=== PATIENT | male | born 1945 | race Caucasian/White ===

== ENCOUNTER 2018-01-13 16:14 | Emergency (ER) | payer OTHER, MEDICARE, BC ==
[~2018-01-13] VITALS: Ht 180.3 cm; Wt 113.5 kg
[~2018-01-13 16:14] MED LIST: ADVI200T PO; BENA20TA3; CYCL1PAK; GABA300C3 PO; PROC5TAB PO; ROXI5TAB4 PO
[2018-01-13 16:30] VITALS: BP 167/92; PULSE 110; RESP 18; TEMP 98.2; O2SAT 98
--- NOTE | 2018-01-13 16:40 | PD ---
HPI Chief Complaint: Cardiac Complaint Time Seen by Provider: 16:37 Travel History International Travel<30 days: No Contact w/Intl Traveler<30days: No Traveled to known affect area: No History of Present Illness HPI 72-year-old male presents via EMS for evaluation of atrial fibrillation. The patient went to the [place] today for routine physical and he was found to have atrial fibrillation with RVR. The patient does report that over the past few weeks he has been experiencing mild palpitations. He denies any chest pain, shortness of breath, nausea or vomiting, fevers or chills, abdominal pain, lower extremity edema. He reports that he has had some situational family stress over the past few weeks. Denies any drug, alcohol, tobacco use. He reports that he had one episode of atrial fibrillation approximately 1.5 years ago which resolved spontaneously. Since then he has been on a baby aspirin daily. Reports history of hypertension. He has no other complaints at this time. [facility] Social History Alcohol Use: No Tobacco Use: No Allergies-Medications (Allergen,Severity, Reaction): Coded Allergies: No Known Allergies (Unverified Adverse Reaction, Unknown, 01/13/18) Reported Meds & Prescriptions Reported Meds & Active Scripts Active Metoprolol Tartrate 25 Mg Tab 25 Mg PO DAILY Reported Motrin Ib (Ibuprofen) 200 Mg Tablet 200 Mg PO Q6HR PRN Tylenol (Acetaminophen) 325 Mg Tab 650 Mg PO Q4H PRN Acetaminophen Pm Caplet (Acetaminophen/Diphenhydramine) 500 Mg-25 Mg Tablet 1 Tab PO HS PRN Holden Chewable Low Dose (Aspirin) 81 Mg Chew 81 Mg PO DAILY Lotrel 5-40 mg Capsule (Amlodipine Besylate/Benazepril) 5 Mg-40 Mg Capsule 1 Cap PO DAILY Review of Systems Except as stated in HPI: all other systems reviewed are Neg Physical Exam Narrative GENERAL: Well-developed well-nourished male in no acute distress resting comfortably in hospital bed. SKIN: Warm and dry. HEAD: Atraumatic. Normocephalic. EYES: Pupils equal and round. No scleral icterus. No injection or drainage. ENT: No nasal bleeding or discharge. Mucous membranes pink and moist. NECK: Trachea midline. No JVD. CARDIOVASCULAR: Irregular rate and rhythm. No murmur appreciated. RESPIRATORY: No accessory muscle use. Clear to auscultation. Breath sounds equal bilaterally. GASTROINTESTINAL: Abdomen soft, non-tender, nondistended. Hepatic and splenic margins not palpable. MUSCULOSKELETAL: No obvious deformities. No clubbing. No cyanosis. No edema. NEUROLOGICAL: Awake and alert. No obvious cranial nerve deficits. Motor grossly within normal limits. Normal speech. PSYCHIATRIC: Appropriate mood and affect; insight and judgment normal. Data Data Last Documented VS Vital Signs Date Time Temp Pulse Resp B/P (MAP) Pulse Ox O2 Delivery O2 Flow Rate FiO2 01/13/18 17:45 88 16 127/72 (90) 99 Nasal Cannula 2.00 01/13/18 16:30 98.2 Orders Orders Electrocardiogram (01/13/18 16:37) Basic Metabolic Panel (Bmp) (01/13/18 16:37) Complete Blood Count With Diff (01/13/18 16:37) Magnesium (Mg) (01/13/18 16:37) Prothrombin Time / Inr (Pt) (01/13/18 16:37) Act Partial Throm Time (Ptt) (01/13/18 16:37) Chest, Single Ap (01/13/18 16:37) Ecg Monitoring (01/13/18 16:37) Bilateral Bp Monitoring (01/13/18 16:37) Iv Access Insert/Monitor (01/13/18 16:37) Oximetry (01/13/18 16:37) Oxygen Administration (01/13/18 16:37) Sodium Chloride 0.9% Flush (Ns Flush) (01/13/18 16:45) Diltiazem Inj (Cardizem Inj) (01/13/18 16:45) Sodium Chlorid 0.9% 500 Ml Inj (Ns 500 M (01/13/18 17:15) Labs Laboratory Tests Test 01/13/18 16:35 01/13/18 18:38 White Blood Count 10.1 TH/MM3 Red Blood Count 4.59 MIL/MM3 Hemoglobin 15.2 GM/DL Hematocrit 42.5 % Mean Corpuscular Volume 92.7 FL Mean Corpuscular Hemoglobin 33.1 PG Mean Corpuscular Hemoglobin Concent 35.6 % Red Cell Distribution Width 13.7 % Platelet Count 278 TH/MM3 Mean Platelet Volume 9.1 FL Neutrophils (%) (Auto) 70.6 % Lymphocytes (%) (Auto) 19.4 % Monocytes (%) (Auto) 8.2 % Eosinophils (%) (Auto) 1.2 % Basophils (%) (Auto) 0.6 % Neutrophils # (Auto) 7.1 TH/MM3 Lymphocytes # (Auto) 2.0 TH/MM3 Monocytes # (Auto) 0.8 TH/MM3 Eosinophils # (Auto) 0.1 TH/MM3 Basophils # (Auto) 0.1 TH/MM3 CBC Comment DIFF FINAL Differential Comment Prothrombin Time 10.2 SEC Prothromb Time International Ratio 1.0 RATIO Activated Partial Thromboplast Time 23.1 SEC Blood Urea Nitrogen 19 MG/DL Creatinine 1.23 MG/DL Random Glucose 80 MG/DL Calcium Level 8.6 MG/DL Magnesium Level 2.0 MG/DL Sodium Level 142 MEQ/L Potassium Level 3.9 MEQ/L Chloride Level 110 MEQ/L Carbon Dioxide Level 26.4 MEQ/L Anion Gap 6 MEQ/L Estimat Glomerular Filtration Rate 58 ML/MIN MDM Medical Decision Making Medical Screen Exam Complete: Yes Emergency Medical Condition: Yes Medical Record Reviewed: Yes Differential Diagnosis Atrial fibrillation, electrolyte abnormality, PVCs, PACs Narrative Course 72 -year-old male with history of atrial fibrillation one year ago presents for evaluation of recurrent atrial fibrillation. EKG reveals atrial fibrillation with a rate in the low 100s. Lab work is unremarkable. Chest x-ray is unremarkable. The patient was given a small fluid bolus as well as 20 mg diltiazem. He was monitored for a few hours afterwards and his heart rate came in the 80s. The patient was asymptomatic during his hospital stay. He would prefer to follow up with his front of house manager on an outpatient basis. Discussed with my attending agrees with plan of care, the patient will be discharged with a prescription for low-dose metoprolol. Recommend that he increase his aspirin to a full dose on a daily basis and follow-up soon with his front of house manager and return for any acute or worsening symptoms. Diagnosis Primary Impression: Atrial fibrillation Additional Instructions: Take a full dose aspirin on a daily basis. Medication as prescribed. Follow- up in the next few days with your front of house manager. Return for any acutely new or worsening symptoms. Med/Other Pt SpecificInfo: Prescription(s) given Scripts Metoprolol Tartrate (Metoprolol Tartrate) 25 Mg Tab 25 MG PO DAILY, #30 TAB 0 Refills Prov: Alhaji Watt MD 01/13/18 Disposition: 01 DISCHARGE HOME Condition: Stable Alfred Lu Jan 13, 2018 16:40
[2018-01-13] MEDS ORDERED: DILTIAZEM HCL 25 MG/5 ML VIAL IV ONE (16:45)
[2018-01-13] MEDS ORDERED: IBUP-1129 PO (16:45)
[2018-01-13] MEDS ORDERED: DIPH25TA31 PO (16:45)
[2018-01-13] MEDS ORDERED: TYLE325T PO (16:45)
[2018-01-13] MEDS ORDERED: LOTR5CAP PO (16:45)
[2018-01-13] MEDS ORDERED: SODIUM CHLORIDE 0.9% FLUSH 10 ML FLUSH IVF PRN (16:45)
[2018-01-13] MEDS ORDERED: ASPI81CH38 PO (16:45)
[2018-01-13 17:05] VITALS: BP 106/61; PULSE 97; RESP 20; O2SAT 98
--- NOTE | 2018-01-13 17:05 | RADRPT ---
EXAM DATE/TIME: 01/13/2018 16:42 [facility] COMPARISON: No previous studies available for comparison. INDICATIONS : Palpitations and shortness of breath. MEDICAL HISTORY : Hypertension. SURGICAL HISTORY : None. ENCOUNTER: Initial ACUITY: 2 weeks PAIN SCORE: 0/10 LOCATION: Bilateral chest FINDINGS: A single view of the chest demonstrates the lungs to be symmetrically aerated without evidence of mas s, infiltrate or effusion. The cardiomediastinal contours are unremarkable. Osseous structures are intact. CONCLUSION: The lungs are clear. Pb Andrade MD on January 13, 2018 at 17:04 Board Certified Radiologist. This report was verified electronically.
[2018-01-13 17:10] VITALS: PULSE 75; RESP 20; O2SAT 99
[2018-01-13] MEDS ORDERED: SODIUM CHLORID 0.9% 500 ML INJ 500 ML IV ONE (17:15)
[2018-01-13 17:30] LABS: AUTOMATED NEUTROPHIL # 7.1 TH/MM3 (1.8-7.7); BASOPHIL # 0.1 TH/MM3 (0-0.2); BASOPHIL % 0.6 % (0.0-2.0); EOSINOPHIL # 0.1 TH/MM3 (0-0.4); EOSINOPHIL % 1.2 % (0.0-4.0); HEMATOCRIT 42.5 % (39.0-51.0); HEMOGLOBIN 15.2 GM/DL (13.0-17.0); LYMPH % 19.4 % (9.0-44.0); MEAN CELL VOLUME 92.7 FL (80.0-100.0); MEAN CORPUSCULAR HEMOGLOBIN 33.1 PG (27.0-34.0); MEAN CORPUSCULAR HGB CONC 35.6 % (32.0-36.0); MEAN PLATELET VOLUME 9.1 FL (7.0-11.0); MONO % 8.2 % (0.0-8.0); MONOCYTE # 0.8 TH/MM3 (0-0.9); NEUT % 70.6 % (16.0-70.0); PLATELET COUNT 278 TH/MM3 (150-450); RED BLOOD COUNT 4.59 MIL/MM3 (4.50-5.90); RED CELL DISTRIBUTION WIDTH 13.7 % (11.6-17.2); WHITE BLOOD COUNT 10.1 TH/MM3 (4.0-11.0)
[2018-01-13 17:45] VITALS: BP 127/72; PULSE 88; RESP 16; O2SAT 99
[2018-01-13 17:49] LABS: PROTHROMBIN TIME - PATIENT 10.2 SEC (9.8-11.6)
[2018-01-13 19:13] LABS: BICARBONATE 26.4 MEQ/L (21.0-32.0); CALCIUM 8.6 MG/DL (8.5-10.1); CREATININE 1.23 MG/DL (0.60-1.30)
[2018-01-13] MEDS ORDERED: METO25TA3 PO (19:17)
[2018-01-13 19:20] VITALS: BP 129/79; PULSE 86; RESP 18; O2SAT 100
--- NOTE | 2018-01-14 13:43 | EKG ---
Date Performed: 01/13/2018 Time Performed: 16:27:47 PTAGE: 72 years EKG: ATRIAL FIBRILLATION WITH RAPID VENTRICULAR RESPONSE WITH ABERRANT CONDUCTION OR VENTRICULAR PREMATURE COMPLEXES MINIMAL ST DEPRESSION ABNORMAL RHYTHM ECG INTERPRETATION BASED ON A DEFAULT AGE OF 40 YEARS NO PREVIOUS TRACING The rhythm is probably atrial fibrillation, but there is enough basel ine artifact. The tracing should be repeated for a definitive diagnosis. DOCTOR: Yulissa Toussaint Interpretating Date/Time 01/14/2018 13:41:58
== END 2018-01-13 19:43 | disposition home or self-care (01) ==
LOC: NEPC 16:14
DX: I48.91 Unspecified atrial fibrillation (principal); I10 Essential (primary) hypertension; Z79.82 Long term (current) use of aspirin; Z79.899 Other long term (current) drug therapy
CPT/HCPCS: 71045; 80048; 83735; 85025; 85610; 85730; 93005; 96374; 99285; J7040